=== PATIENT | female | born 2000 | race Asian ===

== ENCOUNTER 2020-08-16 21:19 | Emergency (ER) | payer OTHER ==
[~2020-08-16] VITALS: Ht 175.3 cm; Wt 176.9 kg
[2020-08-16 23:28] LABS: PLATELET COUNT 261 K/uL (152-353)
[2020-08-16 23:36] LABS: POTASSIUM 4.3 mmol/L (3.6-5.2)
[2020-08-17 01:20] VITALS: BP 148/93; TEMP 98.2
== END 2020-08-17 01:28 | disposition home or self-care (01) ==
LOC: ED 21:19
PROVIDERS: Family Medicine
DX: J45.901 Unspecified asthma with (acute) exacerbation (principal); J06.9 Acute upper respiratory infection, unspecified
CPT/HCPCS: 80053; 85027; 94664; 96374; 99284; J2930